=== PATIENT | female | born 1975 ===

== ENCOUNTER 2024-09-28 15:32 | Outpatient (RCR) | payer OTHER, SELFPAY | END 2025-01-07 13:43 | disposition home or self-care (01) | LOC: PT 15:32 | PROVIDERS: PCP Family Medicine; Visit Provider Family Medicine | DX: M79.18 Myalgia, other site (principal); M25.551 Pain in right hip | CPT/HCPCS: 20561; 97035; 97140; 97161 ==

== ENCOUNTER 2024-10-15 07:59 | Outpatient (RCR) | payer OTHER, SELFPAY | END 2025-01-08 15:46 | disposition home or self-care (01) | LOC: OT 07:59 | PROVIDERS: PCP Orthopaedic Surgery; Visit Provider Orthopaedic Surgery | DX: M18.0 Bilateral primary osteoarthritis of first carpometacarpal joints (principal); M79.18 Myalgia, other site; M25.551 Pain in right hip | CPT/HCPCS: 20561; 97022; 97035; 97140; 97166; 97530 ==